=== PATIENT | female | born 1985 | race Caucasian/White ===

== ENCOUNTER 2020-01-18 11:08 | Emergency (ER) | payer BC, SELFPAY ==
--- NOTE | ~2020-01-18 | XR_ITS ---
EXAMINATION: XR chest 2V EXAM DATE: 01/18/2020 11:47 INDICATION: Dry cough. TECHNIQUE: Frontal and lateral projections of the chest obtained and reviewed. There is no prior sanjeev dy for comparison. FINDINGS: Moderate chronic appearing hyperinflation. The lungs are clear. There are no pleural effu sions. The cardiomediastinal silhouette is within normal limits. There is no pneumothorax suspected . The bones and soft tissues are unremarkable. IMPRESSION: 1. No acute cardiopulmonary findings. 2. Hyperinflation. Reviewed, dictated and finalized at location A.
[2020-01-18 11:14] VITALS: BP 112/70; PULSE 73; RESP 16; TEMP 37.2; O2SAT 100
--- NOTE | 2020-01-18 11:36 | ED.URI ---
HPI - URI/Sore Throat General Chief Complaint: Upper Respiratory Infection Stated Complaint: chest congestion/dry cough/sinus pressure Time Seen by Provider: 01/18/20 11:36 Mode of arrival: ambulatory Limitations: no limitations History of Present Illness HPI Narrative: Britany Edouard is a 34 yo female with a PMH of bipolar disorder who comes to [facility] for rehabilitation care with a dry cough and tiredness over the last week Related Data Home Medications Medication Instructions Recorded Confirmed escitalopram oxalate 20 mg tablet 20 mg PO DAILY 06/07/19 01/18/20 lamotrigine 100 mg tablet 100 mg PO BID 06/07/19 01/18/20 Allergies Allergy/AdvReac Type Severity Reaction Status Date / Time No Known Drug Allergies Allergy Unknown Verified 06/24/17 10:58 Review of Systems Review of Systems: Narrative: CONSTITUTIONAL: Denies fever, chills, sweats. EYES: Denies visual changes, redness, discharge. ENT: Denies rhinorrhea, congestion, sore throat, otalgia. CARDIOVASCULAR: Denies chest pain, palpitations, edema. RESPIRATORY: Denies dyspnea, wheezing, dry cough GASTROINTESTINAL: Denies abdominal pain, nausea, vomiting, diarrhea. GENITOURINARY: Denies dysuria, hematuria, abnormal discharge SKIN: Denies rash or itching. NEUROLOGIC: Denies numbness, or focal weakness. PSYCHIATRIC: Denies anxiety or depression. PMFSH Past Medical History Medical History Acute non-recurrent maxillary sinusitis Attention deficit hyperactivity disorder (ADHD), combined type, moderate Bipolar 1 disorder Chronic anxiety Chronic constipation Chronic nonallergic rhinitis Hyperthyroidism Night sweats Family History Family History Other No acute medical problems Social History Social History (Updated 01/18/20 @ 11:45 by Sadia Zabala CNP) Smoking status: Current every day smoker Tobacco type: e-cigarettes/vaping Alcohol intake: current Comments At time of signature, I agree with nursing past medical, surgical, social and family history. There is no relevant family history pertinent to the presenting complaint. Exam Narrative: Exam Narrative: GENERAL: This is a well-nourished, well-developed patient, in mild distress. HEAD: normocephalic, atraumatic. EYES: Sclera clear/white. Vision is grossly intact. EARS: External ears normal, auditory canals clear and without drainage, TMs normal without perforation. Hearing grossly intact. NOSE: External nose normal without nasal discharge, nares with redness, no rhinorrhea. THROAT: Mucous membranes moist, posterior pharynx erythema NECK: Neck supple, CARDIOVASCULAR: Regular rate and rhythm without murmurs, gallops, or rubs. RESPIRATORY: Diminished to auscultation. Breath sounds equal bilaterally. No wheezes, rales, or rhonchi.Dry cough GASTROINTESTINAL: Abdomen soft, SKIN: warm, intact with no suspicious lesions or rash, good texture and turgor. NEURO: awake, alert, and oriented to person, place and time. There were no obvious focal neurologic abnormalities. Steady gait EXTREMITIES: Normal range of motion. BACK: Nontender without deformity Course Course Emergency Course: chest Xray- negative for acute pathology. Hyperinflation Discussed tx of bronchitis- started on prednisone 40 mg x 5 days, z pack, albuterol, diflucan Follow up with pcp Vital Signs Vital signs: Vital Signs Temperature 99 F 01/18/20 11:14 Pulse Rate 73 01/18/20 11:14 Respiratory Rate 16 01/18/20 11:14 Blood Pressure 112/70 01/18/20 11:14 Pulse Oximetry 100 01/18/20 11:14 Temperature 99 F 01/18/20 11:14 Pulse Rate 73 01/18/20 11:14 Respiratory Rate 16 01/18/20 11:14 Blood Pressure 112/70 01/18/20 11:14 Pulse Oximetry 100 01/18/20 11:14 MDM - URI/Sore Throat Differential Diagnosis Differential diagnosis: Likely upper respiratory infection, sinusitis, viral infection and other
== END 2020-01-18 12:20 | disposition home or self-care (01) ==
PROVIDERS: Emergency Provider Nurse Practitioner; PCP Family Medicine
DX: J40 Bronchitis, not specified as acute or chronic (principal); F17.290 Nicotine dependence, other tobacco product, uncomplicated; E03.9 Hypothyroidism, unspecified
CPT/HCPCS: 71046; 99213; G0463

== ENCOUNTER 2020-07-22 06:54 | Outpatient (NON) | payer BC, SELFPAY ==
[2020-07-22 22:09] LABS: SARS-CoV-2 RNA PCR Negative
[2020-07-23 11:07] LABS: Influenza Control Positive
== END 2020-07-22 06:55 ==
PROVIDERS: PCP Family Medicine; Visit Provider Family Medicine
DX: R50.9 Fever, unspecified (principal); Z20.828 Contact with and (suspected) exposure to other viral communicable diseases
CPT/HCPCS: 87635; 87804; C9803; U0003

== ENCOUNTER 2020-07-27 16:29 | Outpatient (CLI) | payer BC, SELFPAY ==
--- NOTE | ~2020-07-27 | CT_ITS ---
EXAMINATION: CT abdomen pelvis wo con EXAM DATE: 07/27/2020 16:44 INDICATION: R10.9 - Unspecified abdominal pain. Constipation. TECHNIQUE: Spiral CT of the abdomen and pelvis was performed without contrast. Axial, coronal and s agittal images were reviewed. The dose-length product (DLP) for this examination was 253.30 mGy-cm. The exposure was tailored according to patient size (auto mA exposure control), and iterative recons truction (ASIR) was used as additional dose reduction technique. Comparison is made to prior examinat ion from 02/20/2019. FINDINGS: The liver, spleen, adrenal glands and pancreas are unremarkable. Gallbladder is unremarkab le. No biliary obstruction. There is no nephrolithiasis or hydronephrosis. The uterus is antevert ed and morphologically normal. Trace physiologic free pelvic fluid. The bladder is unremarkable. Th ere is no retroperitoneal or pelvic lymphadenopathy. The appendix is normal. The stomach and small bowel are unremarkable. There is expected amount of c olonic stool. No free intraperitoneal gas. The heart is normal in size. There are no pericardial or pleural effusions. The lung bases are unremarkable. There are no osteoblastic or osteolytic les ions identified. IMPRESSION: 1. No acute intra-abdominal findings. 2. Expected amount of colonic stool. Reviewed, dictated and finalized at location A. L MAKER
== END 2020-07-27 16:30 | disposition home or self-care (01) ==
PROVIDERS: PCP Family Medicine; Visit Provider Family Medicine
DX: R10.9 Unspecified abdominal pain (principal); R50.9 Fever, unspecified
CPT/HCPCS: 74176

== ENCOUNTER 2020-10-29 12:10 | Outpatient (CLI) | payer BC, SELFPAY ==
--- NOTE | ~2020-10-29 | US_ITS ---
EXAMINATION: US_ABDRLQ_US DATE: 10/29/2020 12:36 INDICATION: Right lower quadrant abdominal pain for one week. Nausea. TECHNIQUE: Multiple grayscale and Doppler ultrasound images of the right lower quadrant of the abdome n were obtained. COMPARISON: CT abdomen and pelvis 07/27/2020 FINDINGS: The appendix is not identified. There is no hernia. IMPRESSION: 1. No etiology for the patient's symptoms. Reviewed, dictated and finalized at location A.
== END 2020-10-29 12:11 | disposition home or self-care (01) ==
LOC: ANHIMG 12:17
PROVIDERS: PCP Family Medicine; Visit Provider Nurse Practitioner Family
DX: R10.31 Right lower quadrant pain (principal)
CPT/HCPCS: 76705

== ENCOUNTER 2022-02-18 15:24 | Emergency (ER) | payer BC, SELFPAY ==
--- NOTE | ~2022-02-18 | XR_ITS ---
XR forearm LT 2V 02/18/2022 15:36 INDICATION: Left arm pain after fall PROCEDURE: 2 views left forearm COMPARISON: No prior studies for comparison. FINDINGS: There is a possible nondisplaced proximal radial diaphyseal fracture. Ulna intact. The elbo w and wrist are unremarkable. Mild dorsal soft tissue swelling. No foreign bodies.. The soft tissues appear within normal limits. No foreign bodies are identified. IMPRESSION: 1: Possible nondisplaced proximal radial diaphyseal fracture. Reviewed, dictated and finalized at location A.
[2022-02-18 15:36] VITALS: BP 121/80; PULSE 87; RESP 16; TEMP 37.7; O2SAT 100
--- NOTE | 2022-02-18 15:51 | ED.UPPEXIN ---
HPI - Extremity Injury (Upper) General Chief Complaint: Extremity Injury, Upper Stated Complaint: left forearm injury Time Seen by Provider: 02/18/22 15:52 Source: patient Mode of arrival: ambulatory Limitations: no limitations History of Present Illness HPI narrative: 37 yo F presents with pain and swelling to L forearm with abrasion. Pt states she fell down approx. 4 wooden steps in her home. Put arms out to catch herself. Now having proximal L forearm pain that radiates down to L little finger with movement. ROM decreased due to pain. distal NV intact. All systems reviewed and negative except as noted above. Related Data Home Medications Medication Instructions Recorded Confirmed dextroamphetamine-amphetamine ER 30 mg PO DAILY 02/18/22 02/18/22 30 mg 24hr capsule,extend release escitalopram oxalate 20 mg tablet 20 mg PO DAILY 02/18/22 02/18/22 linaclotide 290 mcg capsule 290 mcg PO DAILY 02/18/22 02/18/22 (Linzess) Allergies Allergy/AdvReac Type Severity Reaction Status Date / Time No Known Drug Allergies Allergy Unknown Unknown Verified 02/18/22 15:29 Review of Systems Review of Systems: CONSTITUTIONAL: Denies fever, chills, or sweats. EYES: Denies visual changes, redness, or discharge. ENT: Denies rhinorrhea, congestion, sore throat, or otalgia. CARDIOVASCULAR: Denies chest pain, palpitations, or edema. RESPIRATORY: Denies cough or dyspnea. GASTROINTESTINAL: Denies abdominal pain, nausea, vomiting, or diarrhea. GENITOURINARY: Denies dysuria or hematuria. SKIN: Denies rash or itching. MUSCULOSKELETAL: Denies back pain, joint pain, or myalgia. Reports pain to proximal aspect left forearm with swelling and abrasion. NEUROLOGIC: Denies headache, numbness, or weakness. PSYCHIATRIC: Denies anxiety or depression. All other systems reviewed are negative, except as documented in HPI. [facility] Past Medical History Medical History (Updated 02/18/22 @ 16:01 by Fallon Zamorano NP) Abdominal pain Acute non-recurrent maxillary sinusitis Attention deficit hyperactivity disorder (ADHD), combined type, moderate Bipolar 1 disorder BMI 21.0-21.9, adult BMI 22.0-22.9, adult Chronic anxiety Chronic constipation Chronic nonallergic rhinitis COVID-19 (07/04/21) unvaccinated Eczema Exposure to COVID-19 virus Fatigue GERD (gastroesophageal reflux disease) Headache Hyperthyroidism Irritable bowel syndrome with constipation Neck pain on left side (~11/2020) left cervical radiculitis Night sweats Palpitation Polyp of colon (~07/26/13) Three hyperplastic polyps on 04/15/[address] Mccollum Right lower quadrant abdominal pain Yeast vaginitis Family History Family History Other No acute medical problems Social History Social History Years smoked: 15 Smoking status: Current every day smoker Tobacco type: e-cigarettes/vaping Alcohol intake: current Comments Patient is aware of diagnosis, understands and agrees to treatment plan. Anticipatory guidance given. Patient agrees to follow-up as directed and is aware of reasons to seek care at the emergency department. Portions of this record may have been created with voice recognition software Exam Narrative: GENERAL: This is a well-nourished, well-developed patient, in no apparent distress. HEAD: normocephalic, atraumatic. EYES: PERRL. Sclera clear/white. Vision is grossly intact. EARS: External ears normal NOSE: External nose normal NECK: Neck supple, non-tender without lymphadenopathy, masses or thyromegaly. CARDIOVASCULAR: Regular rate and rhythm without murmurs, gallops, or rubs. RESPIRATORY: Clear to auscultation. Breath sounds equal bilaterally. No wheezes, rales, or rhonchi. SKIN: warm, Dry, intact with no suspicious lesions or rash, good texture and turgor. NEURO: awake, alert, and oriented to person, place and time. There were no
== END 2022-02-18 16:25 | disposition home or self-care (01) ==
PROVIDERS: Emergency Provider Nurse Practitioner Family; PCP Family Medicine
DX: S52.102A Unspecified fracture of upper end of left radius, initial encounter for closed fracture (principal); W10.9XXA Fall (on) (from) unspecified stairs and steps, initial encounter; F90.2 Attention-deficit hyperactivity disorder, combined type; F41.9 Anxiety disorder, unspecified; Z86.16 Personal history of COVID-19; K21.9 Gastro-esophageal reflux disease without esophagitis; F17.290 Nicotine dependence, other tobacco product, uncomplicated; E05.90 Thyrotoxicosis, unspecified without thyrotoxic crisis or storm
CPT/HCPCS: 29125; 73090; 99214; A4565; G0463

== ENCOUNTER 2022-05-29 08:50 | Emergency (ER) | payer BC, SELFPAY ==
[2022-05-29 08:56] VITALS: BP 112/65; PULSE 73; RESP 14; TEMP 36.9; O2SAT 100
--- NOTE | 2022-05-29 09:25 | ED.GENADULT ---
HPI - General Adult General Chief complaint: Upper Respiratory Infection Stated complaint: Fever/Nausea Source: patient Mode of arrival: ambulatory Limitations: no limitations History of Present Illness HPI narrative: Patient presents for evaluation of sick symptoms for last 2 days. Symptoms include fever, chills, nausea, sore throat, shortness of breath, diarrhea, body aches and fatigue. Two of her family members tested positive for influenza last week. She had COVID in 2020. She is not taking any medication to assist with her symptoms. She does use an electronic cigarette and smokes marijuana. No additional complaints or concerns. Related Data Home Medications Medication Instructions Recorded Confirmed cannabis BYMOUTH chronic pain 05/09/22 05/09/22 Allergies Allergy/AdvReac Type Severity Reaction Status Date / Time No Known Drug Allergies Allergy Unknown Unknown Verified 02/18/22 15:29 Review of Systems Review of Systems: CONSTITUTIONAL: Reports fever, fatigue and chills EYES: Denies visual changes, redness, or discharge. ENT: Reports sore throat. Denies otalgia CARDIOVASCULAR: Denies chest pain, palpitations, or edema. RESPIRATORY: Reports SOB. Denies cough GASTROINTESTINAL: Reports diarrhea. Denies vomiting or abdominal pain GENITOURINARY: Denies dysuria or hematuria. SKIN: Denies rash or itching. MUSCULOSKELETAL:Reports generalized body aches NEUROLOGIC: Denies headache, numbness, dizziness, or weakness. PSYCHIATRIC: Reports anxiety. Denies depression. [facility] Past Medical History Medical History (Updated 05/29/22 @ 09:55 by Julito Hsieh, [facility], ) Abdominal pain lipase 10, CA 125 4, AST 16, ALT 10 on 05/07/2022. Acute non-recurrent maxillary sinusitis Attention deficit hyperactivity disorder (ADHD), combined type, moderate Bipolar 1 disorder BMI 20.0-20.9, adult BMI 21.0-21.9, adult BMI 22.0-22.9, adult Chronic anxiety Chronic constipation Chronic nonallergic rhinitis Closed fracture of left proximal radius no fracture according to orthopedic surgeon, contusion Contusion of forearm, left (02/18/22) COVID-19 (07/04/21) unvaccinated Eczema Exposure to COVID-19 virus Fatigue GERD (gastroesophageal reflux disease) Igor's disease thyroid peroxidase antibodies positive at 236 with TSH 2.35, free T4 1.5, T3 total 119 on 05/07/2022. Headache Hyperthyroidism TSH normal at 2.35, free T4 1.5, T3 total 119 on 05/07/2022. Irritable bowel syndrome with constipation Neck pain on left side (~11/2020) left cervical radiculitis Night sweats Palpitation Personal history of tobacco use 20 pack-year history of smoking with patient quitting 2017. Previously 1 pack per day. Currently vapes nicotine. CT of the chest without contrast on 05/24/2022 reveals multiple small calcified and noncalcified nodules less than or equal to 5 mm with recheck in 1 year due to tobacco use history. Polyp of colon (~07/26/13) Three hyperplastic polyps on 04/15/[address] Mccollum Right lower quadrant abdominal pain Unintentional weight loss Yeast vaginitis Surgical History Surgical History History of salpingectomy Family History Family History Other No acute medical problems Social History Social History Years smoked: 15 Smoking status: Current every day smoker Tobacco type: e-cigarettes/vaping Alcohol intake: current Substance use: current Substance use type: marijuana Living arrangements: with family Gender identity (if verbalized by the patient): Female Spiritual care concerns: No Exam Narrative: GENERAL: Well-appearing, well-nourished, and in no acute distress. HEAD: Normocephalic, atraumatic. EYES: PERRLA and EOMI. ENT: Nares clear, no rhinorrhea or epistaxis. Mucous membranes moist. Oropharyn
== END 2022-05-29 09:59 | disposition home or self-care (01) ==
PROVIDERS: Emergency Provider Nurse Practitioner; PCP Family Medicine
DX: B34.9 Viral infection, unspecified (principal); F17.209 Nicotine dependence, unspecified, with unspecified nicotine-induced disorders; Z20.822 Contact with and (suspected) exposure to COVID-19
CPT/HCPCS: 87426; 87804; 99213; C9803; G0463

== ENCOUNTER 2022-06-23 00:28 | Day surgery (SDC) | payer BC, SELFPAY ==
[2022-06-23 09:45] VITALS: BP 107/73; PULSE 71; RESP 16; TEMP 36.8; O2SAT 100
--- NOTE | 2022-06-23 09:55 | WPDANESEPPF ---
Anes - Initial Pre Proc Eval Procedure: Operation Date: 06/23/22 10:00 Proposed Procedures p Esophagogastroduodenoscopy - Bill Quinones MD Date/Time: 06/23/22 09:55 Surgeon: Bill Quinones MD Pre Op Diagnosis: gerd, abdominal pain Patient Data Age: 37 Gender: F Height: 1.68 m Weight: 58 kg Last Vital Signs Temp 36.8 C 06/23/22 09:45 Pulse 71 06/23/22 09:45 Resp 16 06/23/22 09:45 BP 107/73 06/23/22 09:45 Pulse Ox 100 06/23/22 09:45 O2 Del Method Room Air 06/23/22 09:45 Allergies Allergy/AdvReac Type Severity Reaction Status Date / Time latex Allergy Intermediate Itching Verified 06/23/22 09:20 Home Medications Medication Instructions Recorded Confirmed Type Linzess 290 mcg capsule 290 mcg PO DAILY #30 caps 03/09/22 06/23/22 Rx (linaclotide) clonazepam 0.5 mg tablet (Klonopin) 0.5 mg PO DAILY PRN Anxiety #60 03/09/22 06/23/22 Rx tabs lamotrigine 100 mg tablet 100 mg PO BID #180 tabs 03/09/22 06/23/22 Rx (Lamictal) escitalopram oxalate 20 mg tablet 20 mg PO DAILY #90 tabs 03/14/22 06/23/22 Rx (Lexapro) cannabis See Rx Instructions .Route 05/09/22 06/23/22 History .COMPLEX PRN Pain dextroamphetamine-amphetamine ER 30 mg PO DAILY #30 caps 06/09/22 06/23/22 Rx 30 mg 24hr capsule,extend release (Adderall XR) fluticasone propionate 50 1 spray intranasal BID PRN Allergy 06/09/22 06/23/22 History mcg/actuation nasal Symptoms spray,suspension (Flonase Allergy Relief) triamcinolone acetonide 0.5 % 1 applic topical DAILY PRN ECZEMA 06/09/22 06/23/22 History topical cream Patient hx anesthesia problems: none Family hx anesthesia problems: none Results Review: All pre-operative results and documents have been reviewed as part of the pre-operative evaluation. [facility] Past Medical History Medical History Abdominal pain lipase 10, CA 125 4, AST 16, ALT 10 on 05/07/2022. Acute non-recurrent maxillary sinusitis Attention deficit hyperactivity disorder (ADHD), combined type, moderate Bipolar 1 disorder BMI 20.0-20.9, adult BMI 21.0-21.9, adult BMI 22.0-22.9, adult Chronic anxiety Chronic constipation Chronic nonallergic rhinitis Closed fracture of left proximal radius no fracture according to orthopedic surgeon, contusion Contusion of forearm, left (02/18/22) COVID-19 (07/04/21) unvaccinated Eczema Exposure to COVID-19 virus Fatigue GERD (gastroesophageal reflux disease) Igor's disease thyroid peroxidase antibodies positive at 236 with TSH 2.35, free T4 1.5, T3 total 119 on 05/07/2022. Headache Hyperthyroidism TSH normal at 2.35, free T4 1.5, T3 total 119 on 05/07/2022. Irritable bowel syndrome with constipation Neck pain on left side (~11/2020) left cervical radiculitis Night sweats Palpitation Personal history of tobacco use 20 pack-year history of smoking with patient quitting 2017. Previously 1 pack per day. Currently vapes nicotine. CT of the chest without contrast on 05/24/2022 reveals multiple small calcified and noncalcified nodules less than or equal to 5 mm with recheck in 1 year due to tobacco use history. Polyp of colon (~07/26/13) Three hyperplastic polyps on 04/15/[address] Mccollum Right lower quadrant abdominal pain Unintentional weight loss Yeast vaginitis Surgical History Surgical History History of salpingectomy Family History Family History Other No acute medical problems Social History Social History Smoking packs per day: 1 Smoking cigarettes per day: 20.0 Years smoked: 20 Smoking pack-years: 20.00 Smoking status: Former smoker Tobacco type: e-cigarettes/vaping Additional smoking assessment comments: STARTED VAPING IN 2018 Alcohol intake: cur
[2022-06-23] MEDS: LACTATED RINGERS 1,000 ML 150 ML IV CONT (09:58)
--- NOTE | 2022-06-23 10:16 | PM.HPGS ---
History of Present Illness History of Present Illness Consent: Risks, benefits, and alternatives have been discussed and questions answered. Patient agrees to proceed with procedure. Chief complaint: gerd, abdominal pain Narrative: Britany Edouard is a 37 year old female Presents for EGD. Patient reports she recently has had left-sided abdominal pain. Both upper and lower abdomen. Additionally she has had nervousness, anxious stenosis, weight loss. She is referred for EGD because of ongoing abdominal discomfort. She did have a colonoscopy by Dr. Mccollum in 2019 that was unremarkable. 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 Review of Systems Review of Systems: Review of systems noncontributory. [facility] Past Medical History Medical History Abdominal pain lipase 10, CA 125 4, AST 16, ALT 10 on 05/07/2022. Acute non-recurrent maxillary sinusitis Attention deficit hyperactivity disorder (ADHD), combined type, moderate Bipolar 1 disorder BMI 20.0-20.9, adult BMI 21.0-21.9, adult BMI 22.0-22.9, adult Chronic anxiety Chronic constipation Chronic nonallergic rhinitis Closed fracture of left proximal radius no fracture according to orthopedic surgeon, contusion Contusion of forearm, left (02/18/22) COVID-19 (07/04/21) unvaccinated Eczema Exposure to COVID-19 virus Fatigue GERD (gastroesophageal reflux disease) Igor's disease thyroid peroxidase antibodies positive at 236 with TSH 2.35, free T4 1.5, T3 total 119 on 05/07/2022. Headache Hyperthyroidism TSH normal at 2.35, free T4 1.5, T3 total 119 on 05/07/2022. Irritable bowel syndrome with constipation Neck pain on left side (~11/2020) left cervical radiculitis Night sweats Palpitation Personal history of tobacco use 20 pack-year history of smoking with patient quitting 2017. Previously 1 pack per day. Currently vapes nicotine. CT of the chest without contrast on 05/24/2022 reveals multiple small calcified and noncalcified nodules less than or equal to 5 mm with recheck in 1 year due to tobacco use history. Polyp of colon (~07/26/13) Three hyperplastic polyps on 04/15/[address] Klucka Right lower quadrant abdominal pain Unintentional weight loss Yeast vaginitis Surgical History Surgical History History of salpingectomy Family History Family History Other No acute medical problems Social History Social History Smoking packs per day: 1 Smoking cigarettes per day: 20.0 Years smoked: 20 Smoking pack-years: 20.00 Smoking status: Former smoker Tobacco type: e-cigarettes/vaping Additional smoking assessment comments: STARTED VAPING IN 2018 Alcohol intake: current Drinks per week: 3 Alcohol use details: DRINKS Substance use: current Substance use type: marijuana Other substance usage details: DAILY Living arrangements: with family Gender identity (if verbalized by the patient): Female Spiritual care concerns: No Meds Home Medications and Allergies Home Medications Medication Instructions Recorded Confirmed Type Linzess 290 mcg capsule 290 mcg PO DAILY #30 caps 03/09/22 06/23/22 Rx (linaclotide) clonazepam 0.5 mg tablet (Klonopin) 0.5 mg PO DAILY PRN Anxiety #60 03/09/22 06/23/22 Rx tabs lamotrigine 100 mg tablet 100 mg PO BID #180 tabs 03/09/22 06/23/22 Rx (Lamictal) escitalopram oxalate 20 mg tablet 20 mg PO DAILY #90 tabs 03/14/22 06/23/22 Rx (Lexapro) cannabis See Rx Instructions .Route 05/09/22 06/23/22 History .COMPLEX PRN Pain dextroamphetamine-amphetamine ER 30 mg PO DAILY #30 caps 06/09/22 06/23/22 Rx 30 mg 24hr capsule,extend release (Adderall XR) fluticasone propionate 50
[2022-06-23] MEDS: BENZOCAINE (*SP) 60 ML SPRAY CAN (HURRICAINE) 1 SPRAY MUCOUS MEM (10:25)
[2022-06-23 10:36] VITALS: BP 115/78; PULSE 72; RESP 18; O2SAT 100
[2022-06-23 10:46] VITALS: BP 121/86; PULSE 73; RESP 16; O2SAT 100
[2022-06-23 10:56] VITALS: BP 130/84; PULSE 71; RESP 18; O2SAT 100
== END 2022-06-23 11:18 | disposition home or self-care (01) ==
PROVIDERS: PCP Family Medicine; Visit Provider Internal Medicine Gastroenterology
PROC: 0DJ08ZZ Inspection of Upper Intestinal Tract, Via Natural or Artificial Opening Endoscopic (ICD-10-PCS; CPT 43235; principal; 2022-06-23 10:00)
DX: R10.32 Left lower quadrant pain (principal); R10.13 Epigastric pain; K21.9 Gastro-esophageal reflux disease without esophagitis; R63.4 Abnormal weight loss; Z68.20 Body mass index [BMI] 20.0-20.9, adult; F31.9 Bipolar disorder, unspecified; F90.9 Attention-deficit hyperactivity disorder, unspecified type; F41.9 Anxiety disorder, unspecified; Z86.16 Personal history of COVID-19; E06.3 Autoimmune thyroiditis; E05.90 Thyrotoxicosis, unspecified without thyrotoxic crisis or storm; K58.1 Irritable bowel syndrome with constipation; F17.290 Nicotine dependence, other tobacco product, uncomplicated; F10.90 Alcohol use, unspecified, uncomplicated; F12.90 Cannabis use, unspecified, uncomplicated
CPT/HCPCS: 43239; 87081; J2704; J7120

== ENCOUNTER 2022-11-03 14:07 | Emergency (ER) | payer BC, SELFPAY ==
--- NOTE | 2022-11-03 14:14 | ED.FEMALEGU ---
HPI - Female Genitourinary General Chief complaint: Urogenital-Female Stated complaint: multi Time Seen by Provider: 11/03/22 14:16 Source: patient and RN notes reviewed History of Present Illness HPI Narrative: Patient is a 37-year-old female who presents to urgent care with complaints of painful hemorrhoids, urinary frequency bilateral flank pain, and a sore throat. Patient states that her main issue is the pain from her hemorrhoids that started on Monday. Patient states that she has been doing Sitz baths, ice, warm compress and took tramadol last night. Patient states that her sore throat started a few days ago and she believes it may be due to some drainage. Denies any fever, nausea or vomiting. No other acute complaints. No acute distress noted. Patient aware of plan of care. Some parts of this dictation were generated by voice recognition software and may contain typographical and/or grammatical inaccuracies. Related Data Home Medications Medication Instructions Recorded Confirmed cannabis See Rx Instructions .Route 05/09/22 11/03/22 .COMPLEX PRN Pain fluticasone propionate 50 1 spray intranasal BID PRN Allergy 06/09/22 11/03/22 mcg/actuation nasal Symptoms spray,suspension (Flonase Allergy Relief) Allergies Allergy/AdvReac Type Severity Reaction Status Date / Time latex Allergy Intermediate Itching Verified 11/03/22 14:25 Review of Systems Review of Systems: CONSTITUTIONAL: Denies fever, chills, or sweats. EYES: Denies visual changes, redness, or discharge. ENT: Denies rhinorrhea, congestion, otalgia. reports of sore throat CARDIOVASCULAR: Denies chest pain, palpitations, or edema. RESPIRATORY: Denies cough or dyspnea. GASTROINTESTINAL: Denies abdominal pain, nausea, vomiting, or diarrhea. Reports of painful hemorrhoids GENITOURINARY: Reports of urinary urgency and bilateral flank pain SKIN: Denies rash or itching. MUSCULOSKELETAL: Denies back pain, joint pain, or myalgia. NEUROLOGIC: Denies headache, numbness, or weakness. All other systems reviewed are negative, except as documented in HPI. [facility] Past Medical History Medical History (Updated 11/03/22 @ 14:59 by HEYDI Johnson) Abdominal pain lipase 10, CA 125 4, AST 16, ALT 10 on 05/07/2022. normal EGD 06/23/2022. Acute non-recurrent maxillary sinusitis Attention deficit hyperactivity disorder (ADHD), combined type, moderate Bipolar 1 disorder BMI 20.0-20.9, adult BMI 21.0-21.9, adult BMI 22.0-22.9, adult Chronic anxiety Chronic constipation Chronic nonallergic rhinitis Closed fracture of left proximal radius no fracture according to orthopedic surgeon, contusion Conjunctivitis (06/23/22) Contusion of forearm, left (02/18/22) COVID-19 (07/04/21) unvaccinated Eczema Exposure to COVID-19 virus Fatigue GERD (gastroesophageal reflux disease) Igor's disease thyroid peroxidase antibodies positive at 236 with TSH 2.35, free T4 1.5, T3 total 119 on 05/07/2022. Headache Hyperthyroidism TSH normal at 2.35, free T4 1.5, T3 total 119 on 05/07/2022. Irritable bowel syndrome with constipation Neck pain on left side (~11/2020) left cervical radiculitis Night sweats Palpitation Personal history of tobacco use 20 pack-year history of smoking with patient quitting 2017. Previously 1 pack per day. Currently vapes nicotine. CT of the chest without contrast on 05/24/2022 reveals multiple small calcified and noncalcified nodules less than or equal to 5 mm with recheck in 1 year due to tobacco use history. Polyp of colon (~07/26/13) Three hyperplastic polyps on 04/15/[address] Mccollum Right lower quadrant abdominal pain Unintentional weight loss Yeast vaginitis Surgical History Surgical History History of salpingectomy Family History Family History Other No acute medical problems Social History S
[2022-11-03 14:17] VITALS: BP 114/77; PULSE 90; RESP 20; TEMP 36.9; O2SAT 100
== END 2022-11-03 15:03 | disposition home or self-care (01) ==
PROVIDERS: Emergency Provider Nurse Practitioner Family; PCP Family Medicine
DX: K64.9 Unspecified hemorrhoids (principal); J02.9 Acute pharyngitis, unspecified; F17.290 Nicotine dependence, other tobacco product, uncomplicated; F12.90 Cannabis use, unspecified, uncomplicated; Z86.16 Personal history of COVID-19; K21.9 Gastro-esophageal reflux disease without esophagitis; E06.3 Autoimmune thyroiditis; E05.90 Thyrotoxicosis, unspecified without thyrotoxic crisis or storm
CPT/HCPCS: 81003; 87081; 87880; 99213; G0463

== ENCOUNTER 2023-03-30 09:29 | Outpatient (CLI) | payer BC, SELFPAY ==
--- NOTE | 2023-04-06 15:56 | WPDHOLTEREM ---
Holter/Event Monitor Holter/Event Monitor Date of procedure: 03/30/23 Holter/Event Procedure: 48 Hr Holter Monitor Indications: Tachycardia Conclusion: 1. 48 hour holter monitor on 03/30/23. 2. Underlying rhythm is sinus rhythm. HR range 52-141 bpm; average HR 86 bpm. HR at 141 bpm was at 12:19. 3. There are 19 premature supraventricular complexes and 1 supraventricular couplet. No supraventricular tachycardia. 4. No premature ventricular complexes. No ventricular tachycardia. 5. No sinoatrial or atrioventricular blocks. No significant pauses greater than 2 seconds. 6. No symptoms available for correlation.
== END 2023-03-30 09:30 | disposition home or self-care (01) ==
LOC: ANHCARD 09:30
PROVIDERS: PCP Family Medicine; Visit Provider Nurse Practitioner Family
DX: R00.0 Tachycardia, unspecified (principal); R00.2 Palpitations
CPT/HCPCS: 93225; 93226

== ENCOUNTER 2023-04-14 08:11 | Outpatient (CLI) | payer BC, SELFPAY ==
--- NOTE | 2023-04-14 13:24 | WPDPFTINT ---
PFT Procedure Performed PFT Procedure Performed Spirometry with Pre/Post Bronchodilator Plethysmography (Lung Vol) Diffusing Cap (DLCO) Flow Vol Loop PFT Interpretation This is a pulmonary function test with pre and post-bronchodilator spirometry, plethysmography and diffusing capacity. The test was performed and results interpreted in accordance with the 2019 and 2005 ATS/ERS Task Force guidelines respectively using the Global Lung Function Initiative-2012 reference equations. Patient demonstrated good effort and cooperation. Reproducibility criteria were met. The quality of the pre bronchodilator spirometry maneuver was Grade A and post bronchodilator spirometry maneuver was Grade A. Findings: Spirometry: The contour the inspiratory and expiratory flow tracing are normal. The pre bronchodilator FVC is 5.29 L, 133% predicted. The pre bronchodilator FEV1 is 3.90 L, 120% predicted. The pre bronchodilator FEV1: FVC ratio 74%. The post bronchodilator FVC is 5.33 L, representing 1% increase. The post bronchodilator FEV1 is 4.19 L, representing a 7% increase. The post bronchodilator FEV1: FVC ratio is 79%. Plethysmography: The total lung capacity is 7.77 L, 145% predicted. The functional residual capacity is 4.31 L, 144% predicted. The residual volume is 2.48 L, 149% predicted. The residual volume: Total lung capacity ratio is 32%. Diffusing capacity: The diffusing capacity unadjusted for hemoglobin and carboxyhemoglobin is 24.6, 99% predicted. The diffusing capacity adjusted for alveolar volume is 3.89, 83% predicted. Impression: The spirometry is normal without evidence of an obstructive abnormality. There is no significant improvement after inhaling a single dose of albuterol. The total lung capacity, functional residual capacity and residual volume are increased with a normal residual volume: Total lung capacity ratio consistent with large lungs. The diffusing capacity is normal. There are no prior studies for comparison
== END 2023-04-14 08:12 | disposition home or self-care (01) ==
PROVIDERS: PCP Family Medicine; Visit Provider Family Medicine
DX: R07.9 Chest pain, unspecified (principal); R06.02 Shortness of breath; R00.0 Tachycardia, unspecified
CPT/HCPCS: 94060; 94726; 94729

== ENCOUNTER 2023-04-21 07:55 | Outpatient (CLI) | payer BC, SELFPAY ==
--- NOTE | 2023-04-21 08:11 | EST_ITS ---
Patient Info Name: Britany Edouard Age: 38 years : 1985 Gender: Female Ht: 66 in Wt: 130 lbs BSA: 1.66 m2 HR: 78 bpm BP: 121 / 74 mmHg Heart Rhythm: Sinus Rhythm Exam Date: 04/21/2023 8:21 AM Exam Location: [facility] Stress Patient Status: Outpatient Admit Date: 04/21/2023 Staff Ordering Physician: Benoit Jewell MD Attending Provider: Benoit Jewell MD Exercise Technologist: Audrey Choi RDCS Exercise Physician: Ranulfo Friend DO Exam Type: CA stress test treadmill Study Info A treadmill exercise stress test was performed. Summary 1. 1. Negative Andrea exercise stress test for ischemic ST changes by ECG criteria. 2. 2. Good functional capacity, achieving 12 METs of workload. 3. 3. Appropriate HR response to exercise. 4. 4. Appropriate HR recovery at 1 minute post exercise. 5. 5. No imaging with stress testing. 6. 6. Patient informed of the above results. Protocol: Andrea Stress ECG Details Stage: REST Duration (min): 1 min : 14 sec Speed (mph): 0.0 Grade (%): 0 HR (bpm): 76 SBP (mmHg): 121 DBP (mmHg): 74 METS: --- Stage: REST Duration (min): 2 min : 7 sec Speed (mph): 0.0 Grade (%): 0 HR (bpm): 72 SBP (mmHg): 121 DBP (mmHg): 74 METS: --- Stage: REST Duration (min): 13 min : 9 sec Speed (mph): 0.0 Grade (%): 0 HR (bpm): 81 SBP (mmHg): 121 DBP (mmHg): 74 METS: --- Stage: STAGE 1 Duration (min): 1 min : 0 sec Speed (mph): 1.7 Grade (%): 10 HR (bpm): 111 SBP (mmHg): 121 DBP (mmHg): 74 METS: --- Stage: STAGE 1 Duration (min): 2 min : 0 sec Speed (mph): 1.7 Grade (%): 10 HR (bpm): 113 SBP (mmHg): 121 DBP (mmHg): 74 METS: --- Stage: STAGE 1 Duration (min): 3 min : 0 sec Speed (mph): 1.7 Grade (%): 10 HR (bpm): 120 SBP (mmHg): 113 DBP (mmHg): 62 METS: --- Stage: STAGE 2 Duration (min): 1 min : 0 sec Speed (mph): 2.5 Grade (%): 12 HR (bpm): 122 SBP (mmHg): 113 DBP (mmHg): 62 METS: --- Stage: STAGE 2 Duration (min): 2 min : 0 sec Speed (mph): 2.5 Grade (%): 12 HR (bpm): 129 SBP (mmHg): 121 DBP (mmHg): 59 METS: --- Stage: STAGE 2 Duration (min): 3 min : 0 sec Speed (mph): 2.5 Grade (%): 12 HR (bpm): 138 SBP (mmHg): 121 DBP (mmHg): 59 METS: --- Stage: STAGE 3 Duration (min): 1 min : 0 sec Speed (mph): 3.4 Grade (%): 14 HR (bpm): 145 SBP (mmHg): 122 DBP (mmHg): 66 METS: --- Stage: STAGE 3 Duration (min): 2 min : 0 sec Speed (mph): 3.4 Grade (%): 14 HR (bpm): 154 SBP (mmHg): 122 DBP (mmHg): 66 METS: --- Stage: STAGE 3 Duration (min): 3 min : 0 sec Speed (mph): 3.4 Grade (%): 14 HR (bpm): 159 SBP (mmHg): 127 DBP (mmHg): 68 METS: --- Stage: STAGE 4 Duration (min): 1 min : 0 sec Speed (mph): 4.2 Grade (%): 16 HR (bpm): 161 SBP (mmHg): 127 DBP (mmHg): 68 METS: ---
== END 2023-04-21 07:56 | disposition home or self-care (01) ==
PROVIDERS: PCP Family Medicine; Visit Provider Family Medicine
DX: R07.89 Other chest pain (principal); R06.02 Shortness of breath; R00.0 Tachycardia, unspecified
CPT/HCPCS: 93017

== ENCOUNTER 2023-09-07 16:25 | Emergency (ER) | payer BC, SELFPAY ==
[2023-09-07 16:34] VITALS: BP 143/91; PULSE 100; RESP 20; TEMP 36.6; O2SAT 100
--- NOTE | 2023-09-07 17:08 | ED.URI ---
HPI - URI/Sore Throat General Chief Complaint: Upper Respiratory Infection Stated Complaint: fever/cough/headache/fatigue Time Seen by Provider: 09/07/23 17:09 Source: patient, RN notes reviewed and old records reviewed Mode of arrival: ambulatory Limitations: no limitations History of Present Illness HPI Narrative: 38-year-old female presents to the [facility] with complaints of fever, cough, headache and fatigue that started today. Reports that she took a Mucinex with Tylenol in it that helped her fever. Treatments prior to arrival: cold medicine Related Data Home Medications Medication Instructions Recorded Confirmed cannabis See Rx Instructions .Route 05/09/22 03/14/23 .COMPLEX PRN Pain Allergies Allergy/AdvReac Type Severity Reaction Status Date / Time latex Allergy Intermediate Itching Verified 03/03/23 11:31 Review of Systems Review of Systems: All systems reviewed & are unremarkable except as noted in HPI and below Constitutional: Constitutional: Reports no additional constitutional complaints Eyes: Eyes: Reports no additional eye complaints ENT: Reports as per HPI Cardiovascular: Cardiovascular: Reports no additional cardiovascular complaints, Denies chest pain and Denies dyspnea Respiratory: Respiratory: Reports no additional respiratory complaints, Denies chest congestion, Denies cough and Denies dyspnea Gastrointestinal: Gastrointestinal: Reports no additional gastrointestinal complaints, Denies abdominal pain, Denies nausea and Denies vomiting Musculoskeletal: Musculoskeletal: Reports no additional musculoskeletal complaints Integumentary/Breasts: Skin/Breast: Reports system reviewed and no additional complaints, except as docu Neurologic: Reports system reviewed and no additional complaints, except as documented Psychiatric: Psychiatric: Reports no additional psychiatric complaints Allergic/Immunologic: Allergic/Immunologic: Reports no additional allergic/immunologic complaints PMFSH Past Medical History Medical History Abdominal pain lipase 10, CA 125 4, AST 16, ALT 10 on 05/07/2022. normal EGD 06/23/2022. Acute non-recurrent maxillary sinusitis Attention deficit hyperactivity disorder (ADHD), combined type, moderate Atypical chest pain Exercise stress test on 04/21/2023 was normal. Bipolar 1 disorder Blood typing encounter (06/30/23) blood type O positive on 06/30/2023 BMI 20.0-20.9, adult BMI 21.0-21.9, adult BMI 22.0-22.9, adult Chronic anxiety Chronic constipation Chronic nonallergic rhinitis Closed fracture of left proximal radius no fracture according to orthopedic surgeon, contusion Conjunctivitis (06/23/22) Contusion of forearm, left (02/18/22) COVID-19 (07/04/21) unvaccinated Eczema Exposure to COVID-19 virus Fatigue GERD (gastroesophageal reflux disease) Igor's disease thyroid peroxidase antibodies positive at 236 with TSH 2.35, free T4 1.5, T3 total 119 on 05/07/2022. TSH 1.43, free T4 total at 1.3, T3 118 on 11/04/2022. TSH 1.29, free T4 at 1.3, T3 total at 105 on 06/30/2023. Headache Hyperthyroidism TSH normal at 2.35, free T4 1.5, T3 total 119 on 05/07/2022. Irritable bowel syndrome with constipation resolved after fissure repair, October,. Neck pain on left side (~11/2020) left cervical radiculitis Night sweats Palpitation Personal history of tobacco use 20 pack-year history of smoking with patient quitting 2017. Previously 1 pack per day. Currently vapes nicotine. CT of the chest without contrast on 05/24/2022 reveals multiple small calcified and noncalcified nodules less than or equal to 5 mm with recheck in 1 year due to tobacco use history. Polyp of colon (~07/26/13) Three hyperplastic polyps on 04/15/[address] Mccollum Right lower quadrant abdominal pain Shortness of breath PFT on 04/14/2023 was completely normal. Tachycardia 24 hour Holter monitor 03/30/2023 unremarkable. [facility]
== END 2023-09-07 17:32 | disposition home or self-care (01) ==
PROVIDERS: Emergency Provider Nurse Practitioner; PCP Family Medicine
DX: J11.1 Influenza due to unidentified influenza virus with other respiratory manifestations (principal); Z20.822 Contact with and (suspected) exposure to COVID-19; F17.290 Nicotine dependence, other tobacco product, uncomplicated; F12.90 Cannabis use, unspecified, uncomplicated; K21.9 Gastro-esophageal reflux disease without esophagitis; E06.3 Autoimmune thyroiditis; E05.90 Thyrotoxicosis, unspecified without thyrotoxic crisis or storm; Z86.16 Personal history of COVID-19
CPT/HCPCS: 87426; 87804; 99213; G0463

== ENCOUNTER 2025-04-29 13:01 | Outpatient (CLI) | payer BC, SELFPAY ==
--- NOTE | ~2025-04-29 | MMUS_ITS ---
EXAMINATION: MM diagnostic debbie RT w sherrie, US breast RT limited INDICATION: 40-year old female; BI-RADS 3, short-term follow-up probably benign right breast findings. COMPARISON: 10/02/2024 TECHNIQUE: Digital breast tomosynthesis True lateral, CC and MLO views of the RIGHT breast were obtained with computer-aided detection to assist in interpretation of the study. MAMMOGRAM FINDINGS: The breasts are heterogeneously dense, which may obscure small masses. The asymmetry of concern in the upper outer right breast redemonstrated is unchanged. No new suspicious mass, calcification or architectural distortion to suggest malignancy in the right breast. RIGHT BREAST ULTRASOUND FINDINGS: Targeted evaluation of the area of concern was completed. 0.3 cm circumscribed hypoechoic mass at 9:00 location 5 cm from the nipple in the RIGHT breast redemonstrated have decreased in size in the interval. IMPRESSION: Probable Benign RIGHT breast finding have not significantly changed in the interval. RECOMMENDATION: 6 month follow-up diagnostic BILATERAL mammogram and RIGHT breast ultrasound. BI-RADS 3, PROBABLY BENIGN Reviewed, dictated and finalized at location B. IMPRESSION: Probable Benign RIGHT breast finding have not significantly changed in the inte rval. RECOMMENDATION: 6 month follow-up diagnostic BILATERAL mammogram and RIGHT breast ultrasound. BI-RADS 3, PROBABLY BENIGN
--- OUTSIDE RECORDS SUMMARY | 2025-04-29 13:55 | XMS_ITS | Clinical Summary ---
Author Organization [facility] Address [address], [address] [address] Phone Care Team Providers Care Child Welfare Consultant Name Role Phone Benoit Jewell MD Primary Care Provider Allergies Active Allergy Reactions Criticality Noted Date Comments Latex Swelling High 04/08/2019 redness and swelling where latex touches Medications escitalopram (LEXAPRO) 20 MG Tablet Take 20 mg by mouth daily. Active linaclotide (LINZESS) 290 MCG Capsule Take 290 mcg by mouth every morning (before breakfast). Active lamoTRIgine (LAMICTAL) 100 MG Tablet Take 100 mg by mouth 2 times daily. Active amphetamine-dex troamphetamine (ADDERALL XR) 30 MG CAPSULE SR 24 HR Take 30 mg by mouth every morning. Active Multiple Vitamin (MULTI-VITAMIN PO) Take 1 Tab by mouth daily. Active clonazePAM (KLONOPIN) 0.5 MG Tablet Take 0.5 mg by mouth 2 times daily as needed. Active amoxicillin (AMOXIL) 500 MG Capsule Take 500 mg by mouth every 8 hours. Active Zolpidem Tartrate (AMBIEN PO) Take by mouth nightly as needed (for sleep). Active Family History Medical History Relation Name Comments No Known Problems Father Other-comment Mother benign breast lumps Parkinsonism Mother Relation Name Status Comments Father Alive Mother Alive Social History Tobacco Use Types Packs/Day Years Used Date Smoking Tobacco: Former Cigarettes 1.5 20 0 11/06/1998 - 11/06/2018 Smokeless Tobacco: Never Comments:currently vapes Alcohol Use Standard Drinks/Week Comments Yes 7 (1 standard drink = 0.6 oz pur e alcohol) Comments Unknown Sex and Gender Information Value Date Recorded Sex Assigned at Not on file Legal Sex Female 8:38 PM CDT Gender Identity Not on file Sexual Orientation Not on file Last Filed Vital Signs Vital Sign Reading Time Taken Comments Blood Pressure 124/70 04/15/2019 8:57 AM CDT Pulse 60 04/15/2019 8:57 AM CDT Temperature 36 C (96.8 F) 04/15/2019 8:57 AM CDT Respiratory Rate 17 04/15/2019 8:57 AM CDT Oxygen Saturation 100% 04/15/2019 8:57 AM CDT Inhaled Oxygen Concentration - - Weight 61.2 kg (135 lb) 04/15/2019 7:28 AM CDT Height 167.6 cm (5' 6) 04/15/2019 7:28 AM CDT Body Mass Index 21.79 04/15/2019 7:28 AM CDT Plan of Treatment Health Maintenance Due Date Last Done Comments Hepatitis C Virus (HCV) Screening 1984 Hepatitis B Immunization (1 of 3 - 19+ 3-dose series) 02/13/2003 Pap Smear 02/13/2005 Human Papillomavirus (HPV) Immunization (1 - 3-dose SCDM series) 02/13/2011 Cervical Cancer Screening (CCS) 02/13/2014 HPV/Cotest 02/13/2014 Influenza Immunization (#1) 2025 06/10/2019 SARS-COV-2 Immunization ( season) 2025 Mammogram 09/07/2025 09/07/2024, 06/24, 07/13/2022, Additional history exists Respiratory Syncytial Virus (RSV) Immunization (Adult) (1 - 1-dose 75+ series) 02/13/2059 DTaP/Tdap/Td Immunization Discontinued 11/28/2019, TdaP Immunization Completed 11/28/2019, 05/09/2019 Discussion re Starting/Frequency of Mammograms Completed 10/02/2024, 09/07/2024, 07/14/2023, Additional history exists Meningococcal Immunization (ACWY) Aged Out No longer eligible based on patient's age to complete this topic Pneumococcal Immunization Combined Aged Out No longer eligible based on patient's age to complete this topic Rotavirus Immunization Aged Out No lo nger eligible based on patient's age to complete this topic Procedures Procedure Name Priority Date/Time Associated Diagnosis Comments SHAWNEE DIAG RIGHT UNILATERAL DIGITAL W CAD W WALDEMAR Routine 10/02/2024 3:13 PM CDT Other abnormal and inconclusive findings on diagnostic imaging of breast SHAWNEE SCREENING BILATERAL DIGITAL W CAD W WALDEMAR Routine 09/07/2024 12:10 PM SCREEN AND CYCLONE REPAIRER Visit for screening mammogram from Last 3 Months or Most Recently Relevant to Health Maintenance Results * SHAWNEE DIAG RIGHT UNILATERAL DIGITAL W CAD W WALDEMAR (10/02/2024 3:13 PM CDT) Anatomical Region Laterality Modality breast Right Mammography 10/02/2024 2:04 PM CDT Narrative 10/02/2024 4:17 PM CDT - SHAWNEE DIAG RIGHT UNILATERAL DIGITAL W CAD W WALDEMAR - SHAWNEE US BREAST LIMITED RT UNILATERAL RIGHT DIGITAL DIAGNOSTIC MAMMOGRAM 3D/2D WITH CAD WITH MEDIOLATERAL MEDIOLATERAL OBLIQUE CRANIOCAUDAL SPOT COMPRESSION AND TARGETED RIGHT ULTRASOUND: 10/02/2024 The study was acquired using digital technology and interpreted from soft copy. Current study was also evaluated with ICAD version 7.2. 2D digital mammographic views, as well as 3D digital tomosynthesis were performed in the CC and MLO projections. CLINICAL: Diagnostic study. Patient returns to evaluate a focal asymmetry in the right breast. No personal history of cancer. No family history of breast cancer. COMPARISONS: Comparison is made to exams dated: 09/07/2024 [facility], 07/14/2023, 07/13/2022, 01/11/2022, and 05/05/2021 [facility]. BREAST TISSUE:The breasts are heterogeneously dense, which may obscure small masses. FINDINGS: DIAGNOSTIC RIGHT MAMMOGRAM Spot compression views at least partially efface the mammographic finding. It may be identifiable and spot compression MLO view. TARGETED RIGHT BREAST ULTRASOUND Targeted right breast ultrasound was performed in the region of interest. At the 9 o'clock position 5 cm from the nipple the technologist has measured a hypoechoic oval area. This measures 6 mm x 4 mm x 5 mm. This may represent the lesion or may represent a lobule of dense fibroglandular tissue. IMPRESSION: OVERALL STUDY BIRADS: CATEGORY 3: PROBABLY BENIGN Focal asymmetry at the 9 o'clock position of the right breast is probably benign. A follow-up mammogram and an ultrasound in 6 months is recommended to demonstrate stability. The results and recommendations were discussed with the patient. Electronically signed by: Brenda Lyles M.D. ab/:10/02/2024 15:52:44 Construction Driver(s): Crista Muhammad RDMS, [facility]; RT Hamzah(R)(M), [facility] letter sent: Birad 3 Followup Reading location: [facility] OVERALL STUDY BIRADS: Category 3: Probably Benign Procedure Note Brenda Lyles MD - 10/02/2024 - SHAWNEE DIAG RIGHT UNILATERAL DIGITAL W CAD W WALDEMAR - SHAWNEE US BREAST LIMITED RT UNILATERAL RIGHT DIGITAL DIAGNOSTIC MAMMOGRAM 3D/2D WITH CAD WITH MEDIOLATERAL MEDIOLATERAL OBLIQUE CRANIOCAUDAL SPOT COMPRESSION AND TARGETED RIGHT ULTRASOUND: 10/02/2024 The study was acquired using digital technology and interpreted from soft copy. Current study was also evaluated with ICAD version 7.2. 2D digital mammographic views, as well as 3D digital tomosynthesis were performed in the CC and MLO projections. CLINICAL: Diagnostic study. Patient returns to evaluate a focal asymmetry in the right breast. No personal history of cancer. No family history of breast cancer. COMPARISONS: Comparison is made to exams dated: 09/07/2024 [facility], 07/14/2023, 07/13/2022, 01/11/2022, and 05/05/2021 [facility]. BREAST TISSUE:The breasts are heterogeneously dense, which may obscure small masses. FINDINGS: DIAGNOSTIC RIGHT MAMMOGRAM Spot compression views at least partially efface the mammographic finding. It may be identifiable and spot compression MLO view. TARGETED RIGHT BREAST ULTRASOUND Targeted right breast ultrasound was performed in the region of interest. At the 9 o'clock position 5 cm from the nipple the technologist has measured a hypoechoic oval area. This measures 6 mm x 4 mm x 5 mm. This may represent the lesion or may represent a lobule of dense fibroglandular tissue. IMPRESSION: OVERALL STUDY BIRADS: CATEGORY 3: PROBABLY BENIGN Focal asymmetry at the 9 o'clock position of the right breast is probably benign. A follow-up mammogram and an ultrasound in 6 months is recommended to demonstrate stability. The results and recommendations were discussed with the patient. Electronically signed by: Brenda Lyles M.D. ab/:10/02/2024 15:52:44 Construction Driver(s): Crista Muhammad RDMS, [facility]; RT Hamzah(R)(M), [facility] letter sent: Birad 3 Followup Reading location: [facility] OVERALL STUDY BIRADS: Category 3: Probably Benign us Benoit Jewell MD IMG MAMMO ORDERABLES Final Result * SHAWNEE SCREENING BILATERAL DIGITAL W CAD W WALDEMAR (09/07/2024 12:10 PM SCREEN AND CYCLONE REPAIRER) Anatomical Region Laterality Modality breast Bilateral Mammography 09/07/2024 12:0 6 PM SCREEN AND CYCLONE REPAIRER Narrative 09/09/2024 4:16 PM SCREEN AND CYCLONE REPAIRER - SHAWNEE SCREENING BILATERAL DIGITAL W CAD W WALDEMAR BILATERAL DIGITAL SCREENING MAMMOGRAM 3D/2D WITH CAD WITH MEDIOLATERAL OBLIQUE CRANIOCAUDAL: 09/07/2024 The study was acquired using digital technology and interpreted from soft copy. Current study was also evaluated with ICAD version 7.2. 2D digital mammographic views, as well as 3D digital tomosynthesis were performed in the CC and MLO projections. CLINICAL: Routine screening. Patient has no complaints. No personal history of cancer. No family history of breast cancer. COMPARISONS: Comparison is made to exams dated: 05/05/2021, 01/11/2022, 07/13/2022, and 07/14/2023 [facility]. BREAST TISSUE:The breasts are heterogeneously dense, which may obscure small masses. FINDINGS: There is a focal asymmetry in the right breast at 11 o'clock posterior depth. No other significant masses, calcifications, or other findings are seen in either breast. IMPRESSION: INCOMPLETE: NEED ADDITIONAL IMAGING EVALUATION The focal asymmetry in the right breast is indeterminate. Additional views with possible ultrasound are recommended. An immediate follow-up is recommended. A letter will be sent to the patient with these results. Electronically signed by: Brenda cash/penrad:09/09/2024 15:03:40 Construction Driver(s): RT Hamzah(R)(M), [facility] letter sent: Additional Imaging Reading location: [facility] Mammogram BI-RADS: Category 0: Incomplete: Need Additional Imaging Evaluation Procedure Note Brenda Lyles MD - 09/09/2024 - SHAWNEE SCREENING BILATERAL DIGITAL W CAD W WALDEMAR BILATERAL DIGITAL SCREENING MAMMOGRAM 3D/2D WITH CAD WITH MEDIOLATERAL OBLIQUE CRANIOCAUDAL: 09/07/2024 The study was acquired using digital technology and interpreted from soft copy. Current study was also evaluated with ICAD version 7.2. 2D digital mammographic views, as well as 3D digital tomosynthesis were performed in the CC and MLO projections. CLINICAL: Routine screening. Patient has no complaints. No personal history of cancer. No family history of breast cancer. COMPARISONS: Comparison is made to exams dated: 05/05/2021, 01/11/2022, 07/13/2022, and 07/14/2023 [facility]. BREAST TISSUE:The breasts are heterogeneously dense, which may obscure small masses. FINDINGS: There is a focal asymmetry in the right breast at 11 o'clock posterior depth. No other significant masses, calcifications, or other findings are seen in either breast. IMPRESSION: INCOMPLETE: NEED ADDITIONAL IMAGING EVALUATION The focal asymmetry in the right breast is indeterminate. Additional views with possible ultrasound are recommended. An immediate follow-up is recommended. A letter will be sent to the patient with these results. Electronically signed by: Brenda cash/penrad:09/09/2024 15:03:40 Construction Driver(s): RT Hamzah(R)(M), [facility] letter sent: Additional Imaging Reading location: [facility] Mammogram BI-RADS: Category 0: Incomplete: Need Additional Imaging Evaluation us Benoit Jewell MD IMG MAMMO ORDERABLES Final Result from Last 3 Months or Most Recently Relevant to Health Maintenance Insurance [facility] Care Teams Child Welfare Consultant Relationship Specialty Start Date End Date Benoit Jewell MD [address] [id number] PCP - General Family Medicine 04/15/19
--- OUTSIDE RECORDS SUMMARY | 2025-04-29 13:55 | XMS_ITS | Clinical Summary ---
Author Organization [facility] Address [address] [place] [address] Care Team Providers Care Artificial Teeth Inspector Name Role Phone Benoit Jewell MD Primary Care Provider [phone] Allergies Active Allergy Reactions Criticality Noted Date Comments Latex Medications traMADoL (ULTRAM) 50 mg tablet Take 1 tablet (50 mg total) by mouth every 6 (six) hours As directed for pain not relieved by naproxen alone. Collaborating physician Liliam Julio MD 20 tablet 0 Active Additional Information Patient not taking.Reported on 02/22/2022 mupirocin (BACTROBAN) 2 % ointment Apply topically daily Apply with each dressing change. Collaborating physician Liliam Julio MD 22 g 1 0 Active clonazePAM (KlonoPIN) 0.5 mg tablet Take 1 tablet (0.5 mg total) by mouth 2 (two) times a day as needed Active dextroamphetam ine-amphetamin e XR (ADDERALL XR) 30 mg 24 hr capsule Take 1 capsule (30 mg total) by mouth daily 1 Active escitalopram (LEXAPRO) 20 mg tablet 1 Active lamoTRIgine (LaMICtal) 100 mg tablet Take 1 tablet (100 mg total) by mouth 2 (two) times a day 1 Active Linzess 290 mcg capsule Take 1 capsule (290 mcg total) by mouth daily 1 Active inhalational spacing device (Aerochamber MV) spacerIndicati ons:Bronchitis Use with albuterol inhaler 1 each 4 Active albuterol HFA (PROVENTIL HFA,VENTOLIN HFA,PROAIR HFA) 90 mcg/actuation inhalerIndicat ions:Bronchiti s Inhale 2 puffs every 4 (four) hours as needed for shortness of breath or wheezing (cough) 18 g 4 Active benzonatate (TESSALON) 100 mg capsuleIndicat ions:Cough Take 1 capsule (100 mg total) by mouth 3 (three) times a day as needed for cough 42 capsule 5 Active Active Problems Problem Noted Date Diagnosed Date Contusion of left forearm 02/22/2022 Laceration of right little f john without foreign body with damage to nail 11/28/2019 Immunization, tetanus-diphtheria 11/28/2019 Hyperthyroidism 06/12/2013 Immunizations Immunization Administration Dates Next Due Tdap 11/28/2019 Medical History Medical History Date Comments Bipolar 1 disorder (HCC) Adhd Family History Medical History Relation Name Comments Hypertension Other Hypertension - father, brother (Added by TW Conv) Relation Name Status Comments Other Social History Tobacco Use Types Packs/Day Years Used Date Smoking Tobacco: Former Smokeless Tobacco: Never Alcohol Use Standard Drinks/Week Comments Not Currently 0 (1 standard drink = 0.6 oz pur e alcohol) Comments No Sex and Gender Information Value Date Recorded Sex Assigned at Not on file Legal Sex Female 4:56 PM EMERGENCY COMMUNICATIONS DISPATCHER Gender Identity Female 04/02/2021 9:49 PM CDT Sexual Orientation Straight 04/02/2021 9: 49 PM CDT Obstetrics History Para Term AB IAB SAB Ectopic Multiple Livin g Live Births 0 0 0 0 0 0 0 0 0 0 0 Last Filed Vital Signs Vital Sign Reading Time Taken Comments Blood Pressure 110/70 08/04/2024 6:30 PM EMERGENCY COMMUNICATIONS DISPATCHER Pulse 94 08/04/2024 6:30 PM EMERGENCY COMMUNICATIONS DISPATCHER Temperature 36.9 C (98.4 F) 08/04/2024 6:30 PM EMERGENCY COMMUNICATIONS DISPATCHER Respiratory Rate 18 08/04/2024 6:30 PM EMERGENCY COMMUNICATIONS DISPATCHER Oxygen Saturation 98% 08/04/2024 6:30 PM EMERGENCY COMMUNICATIONS DISPATCHER Inhaled Oxygen Concentration - - Weight 60.5 kg (133 lb 6.4 oz) 08/04/2024 6:30 P M EMERGENCY COMMUNICATIONS DISPATCHER Height 167.6 cm (5' 6) 12/21/2023 5:32 PM CDT Body Mass Index 21.53 12/21/2023 5:32 PM CDT Plan of Treatment Health Maintenance Due Date Last Done Comments Cervical Cancer Screening 1984 Depression Screening 1984 Hepatitis C Screening 1984 Varicella Vaccines (1 of 2 - 13+ 2-dose series) 02/13/1997 Hepatitis B Screening 02/13/2002 Regular Well Visit/Exam 18-64 02/13/2002 HPV Vaccines (1 - 3-dose SCD M series) 02/13/2011 Breast Cancer Screening-Mammogram 07/14/2024 07/14/2023, 07/13/2022, 05/05/2021 Influenza Vaccine (#1) 2025 06/10/2019 DTaP/Tdap/Td Vaccine (3 - Td or Tdap) 11/27/2029 11/28/2019, 05/09/2019 Pneumococcal vaccine <65 Aged Out No longer eligible based on patient's age to complete this topic Procedures Procedure Name Priority Date/Time Associated Diagnosis Comments DIAGNOSTIC MAMMOGRAM BILATERAL W JAD Schedule Routine, Read Routine (OP Routine) 07/14/2023 2:54 PM EMERGENCY COMMUNICATIONS DISPATCHER Follow-up examination of abnormal mammogram from Last 3 Months or Most Recently Relevant to Health Maintenance Results * Diagnostic Mammogram Bilateral W Jad (07/14/2023 2:54 PM EMERGENCY COMMUNICATIONS DISPATCHER) Anatomical Region Laterality Modality Breast Bilateral Mammography 07/14/2023 3:12 PM EMERGENCY COMMUNICATIONS DISPATCHER Impressions 07/14/2023 3:18 PM EMERGENCY COMMUNICATIONS DISPATCHER 1. The 2 small masses at the 2:30 o'clock and 8:30 o'clock positions of the left breast have not suspiciously changed over the past 2 years, consistent with benignity. These findings require no additional specific workup or follow-up. 2. There are no new suspicious findings in either breast. Continued monthly breast self-examination is recommended, and annual bilateral screening mammography in 12 months. BIRADS: 2 - Benign The patient was notified of the results and recommendations at the time of the examination. THIS IS AN ELECTRONICALLY VERIFIED FINAL REPORT 07/14/2023 3:18 PM - Electronically signed by Jose Juan Callejas M.D. RL: BABAK Report ID: [id number] Reading Location: [facility] 07/14/2023 3:18 PM EMERGENCY COMMUNICATIONS DISPATCHER EXAM DESCRIPTION: US BREAST LEFT LIMITED; DIAGNOSTIC MAMMOGRAM BILATERAL W JAD REASON FOR STUDY: 38-year-old woman comes in today for follow-up of probably benign findings in the left breast, and screening of the right breast. COMPARISON: Diagnostic mammogram and sonogram dated 07/13/2022, 01/11/2022, 05/05/2021. FINDINGS: CC and MLO digital breast tomosynthesis of both breasts with C view was performed. Targeted sonographic examination of the left breast was also performed with real-time grayscale images and color Doppler. FINDINGS: MAMMOGRAPHIC FINDINGS: DENSITY: The breasts are extremely dense, which lowers the sensitivity of mammography. BREASTS: A small 6 mm oval low-density mass is identified in the central outer left breast at middle depth on MLO view. This is not well seen on CC view. There are no new suspicious findings in either breast on mammogram. ULTRASOUND FINDINGS: Targeted sonographic examination of the left breast is performed. There is an unchanged small oval hypoechoic mass with circumscribed margins at the 2:30 o'clock position of the left breast 6 cm from the nipple. This mass is wider than taller, measures 4 x 2 x 4 mm, has no posterior acoustic enhancement or shadowing, and demonstrates no internal blood flow on color Doppler. A similar appearing mass is seen unchanged at the 8:30 o'clock position of the left breast 4 cm from the nipple, measuring 5 x 2 x 5 mm. Beatriz Harvey NP IM MAMMO PROCEDURES Final Result from Last 3 Months or Most Recently Relevant to Health Maintenance Insurance [facility] Holographic [employer]jection for [employer] Care Teams Artificial Teeth Inspector Relationship Specialty Start Date End Date Benoit Jewell MD [address] [address] PCP - General Family Medicine 10/30/21
--- OUTSIDE RECORDS SUMMARY | 2025-04-29 13:55 | XMS_ITS | Clinical Summary ---
Author Organization [facility] Address [address] [place] [address] Care Team Providers Care Robotics Engineer Name Role Phone Benoit Jewell MD Primary Care Provider [phone] Allergies Active Allergy Reactions Criticality Noted Date Comments Latex Swelling 03/02/2023 Medications No known medications Social History Tobacco Use Types Packs/Day Years Used Date Smoking Tobacco: Never Smokeless Tobacco: Never Tobacco Cessation:Counseling Given: Not Answered Alcohol Use Standard Drinks/Week Comments Yes 0 (1 standard drink = 0.6 oz pur e alcohol) 1-2 drinks everyday Comments No Sex and Gender Information Value Date Recorded Sex Assigned at Not on file Legal Sex Female 5:45 PM CDT Gender Identity Not on file Sexual Orientation Not on file Last Filed Vital Signs Vital Sign Reading Time Taken Comments Blood Pressure 119/85 03/02/2023 9:08 PM CDT Pulse 82 03/02/2023 9:08 PM CDT Temperature 36.6 C (97.8 F) 03/02/2023 7:00 PM CDT Respiratory Rate 17 03/02/2023 9:08 PM CDT Oxygen Saturation 100% 03/02/2023 9:08 PM CDT Inhaled Oxygen Concentration - - Weight 59 kg (130 lb) 03/02/2023 7:00 PM CDT Height 167.6 cm (5' 6) 03/02/2023 7:00 PM CDT Body Mass Index 20.98 03/02/2023 7:00 PM CDT Plan of Treatment Health Maintenance Due Date Last Done Comments Annual Physical 02/13/1987 Hepatitis C 02/13/2002 Hepatitis B Vaccines (1 of 3 - 19+ 3-dose series) 02/13/2003 HPV Vaccines (1 - 3-dose SCD M series) 02/13/2011 Mammogram Screening 2024 COVID-19 Vaccine ( - 2023-2 5 season) 2025 Influenza Adult (#1) 2025 06/10/2019 Cervical Cancer Screening Pa p Smear (Age 30 to 64) Every 3 Years 10/14/2025 10/14/2022 Cervical Cancer Screening Pa p with HPV Testing (Age 30 to 64) Every 5 Years 10/15/2027 10/14/2022 Cervical Cancer Screening wi th HPV 10/15/2027 DTaP, Tdap and Td Vaccines ( 3 - Td or Tdap) 11/27/2029 11/28/2019, 05/09/2019 Meningococcal B Vaccine Aged Out No l onger eligible based on patient's age to complete this topic Meningococcal Vaccine Aged Out No mariana sonya eligible based on patient's age to complete this topic Pneumococcal Vaccine: Pediatrics (0 to 5 Years) and At-Risk Patients (6 to 49 Years) Aged Out No longer eligible b ased on patient's age to complete this topic RSV Immunizations Under 20 Months Aged Out No longer eligible b ased on patient's age to complete this topic Insurance [facility] Care Teams Robotics Engineer Relationship Specialty Start Date End Date Benoit Jewell MD [address] [place] [address] [address] [place] [address] PCP - General FAMILY PRACTICE 03/02/23
== END 2025-04-29 13:02 | disposition home or self-care (01) ==
LOC: ANHFOHIMG 13:02
PROVIDERS: PCP Family Medicine; Visit Provider Surgery
DX: N63.15 Unspecified lump in the right breast, overlapping quadrants (principal); R92.8 Other abnormal and inconclusive findings on diagnostic imaging of breast
CPT/HCPCS: 76642; 77061; 77065; G0279